=== PATIENT | male | born 1990 | race Caucasian/White ===

== ENCOUNTER 2019-12-04 14:07 | Emergency (ER) | payer SELFPAY ==
[~2019-12-04] VITALS: Ht 175 cm; Wt 57.0 kg
[~2019-12-04 14:07] MED LIST: NAPR-243 PO; NAPR550T PO; SULF1TAB38 PO
[2019-12-04] MEDS ORDERED: NS IV 1000 ML 1,000 ML IV SCH (14:20)
[2019-12-04] MEDS ORDERED: ACETAMINOPHEN 500 MG TAB (TYLENOL) PO STA (14:20)
--- NOTE | 2019-12-04 14:20 | ED Cough/URI ---
General Chief Complaint: Cough/Cold/Flu Symptoms Stated Complaint: ABD PAIN;NAUSEA History of Present Illness Date Seen by Provider: Dec 04, 2019 Time Seen by Provider: 14:17 Initial Comments 29-year-old male presents with generalized body aches, cough, fever, abdominal discomfort, nausea, sore throat. He reports the symptoms started this morning. He reports that he feels hot all over age just miserable. He denies any vomiting diarrhea shortness of breath or other systemic complaints. Allergies and Home Medications Allergies Uncoded Allergies: BUG SPRAY (Allergy, 09/19/11) Home Medications Benzonatate 100 Mg Capsule, 100 MG PO Q8H PRN for CONGESTION Prescribed by: VA KILPATRICK on 12/04/19 1509 Ondansetron 4 Mg Tab.rapdis, 4 MG PO Q6H PRN for NAUSEA/VOMITING Prescribed by: VA KILPATRICK on 12/04/19 1509 Patient Home Medication List Home Medication List Reviewed: Yes Review of Systems Review of Systems Constitutional: chills, fever, malaise Respiratory: cough; No short of breath Cardiovascular: No chest pain Gastrointestinal: abdominal pain ("cramps" ); No constipation, No diarrhea; nausea; No vomiting Musculoskeletal: no symptoms reported Skin: no symptoms reported Psychiatric/Neurological: See HPI Past Itkicso-Sxbxmx-Pezyri Hx Past Med/Social Hx: Reviewed Nursing Past Med/Soc Hx Patient Social History Recent Foreign Travel: No Contact w/Someone Who Travel: No Physical Exam Vital Signs - First Documented 12/04/19 14:10 Temp 38.7 Pulse 91 Resp 18 B/P (MAP) 127/62 (83) Pulse Ox 100 Capillary Refill : Height: '" Weight: lbs. oz. 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, normal mood/affect, oriented x 3 Lymphatic: no adenopathy Progress/Results/Core Measures Suspected Sepsis SIRS Temperature: Pulse: Respiratory Rate: Laboratory Tests 12/04/19 14:26: White Blood Count 7.0 Blood Pressure / Mean: Laboratory Tests 12/04/19 14:26: Creatinine 0.85, Platelet Count 86L, Total Bilirubin 1.0 Results/Orders Lab Results Laboratory Tests Test 12/04/19 14:26 Range/Units White Blood Count 7.0 4.3-11.0 10^3/uL Red Blood Count 5.17 4.35-5.85 10^6/uL Hemoglobin 15.6 13.3-17.7 G/DL Hematocrit 46 40-54 % Mean Corpuscular Volume 89 80-99 FL Mean Corpuscular Hemoglobin 30 25-34 PG Mean Corpuscular Hemoglobin Concent 34 32-36 G/DL Red Cell Distribution Width 13.1 10.0-14.5 % Platelet Count 86 L 130-400 10^3/uL Mean Platelet Volume 13.1 H 7.4-10.4 FL Sodium Level 141 135-145 MMOL/L Potassium Level 4.1 3.6-5.0 MMOL/L Chloride Level 105 98-107 MMOL/L Carbon Dioxide Level 26 21-32 MMOL/L Anion Gap 10 5-14 MMOL/L Blood Urea Nitrogen 8 7-18 MG/DL Creatinine 0.85 0.60-1.30 MG/DL Estimat Glomerular Filtration Rate > 60 BUN/Creatinine Ratio 9 Glucose Level 102 70-105 MG/DL Calcium Level 9.7 8.5-10.1 MG/DL Corrected Calcium 8.5-10.1 MG/DL Total Bilirubin 1.0 0.1-1.0 MG/DL Aspartate Amino Transf (AST/SGOT) 22 5-34 U/L Alanine Aminotransferase (ALT/SGPT) 43 0-55 U/L Alkaline Phosphatase 69 40-136 U/L Total Protein 7.2 6.4-8.2 GM/DL Albumin 4.8 H 3.2-4.5 GM/DL Micro Results Microbiology 12/04/19 Influenza Types A,B Antigen (DREW) - Final, Complete My Orders Orders - VA KILPATRICK DO Cbc No Diff (12/04/19 14:20) Comprehensive Metabolic Panel (12/04/19 14:20) Ua Culture If Indicated (12/04/19 14:20) Influenza A And B Antigens (12/04/19 14:20) Ed Iv/Invasive Line Start (12/04/19 14:20) Ns Iv 1000 Ml (Sodium Chloride 0.9%) (12/04/19 14:20) Acetaminophen Tablet (Tylenol Tablet) (12/04/19 14:20) Ondansetron Injection (Zofran Injectio (12/04/19 14:30) Medications Given in ED Current Medications Medications Dose Ordered Sig/Aldo Route Start Time Stop Time Status Last Admin Dose Admin Ondansetron HCl 4 mg ONCE ONCE IVP 12/04/19 14:30 12/04/19 14:31 DC 12/04/19 14:34 4 MG Vital Signs/I&O 12/04/19 14:10 Temp 38.7 Pulse 91 Resp 18 B/P (MAP) 127/62 (83) Pulse Ox 100 Capillary Refill : Departure Impression Primary Impression: Influenza-like symptoms Disposition: HOME, SELF-CARE Condition: Stable Departure-Patient Inst. Referrals: NO,LOCAL PHYSICIAN (PCP/Family) Primary Care Physician Patient Instructions: Flu, Adult (DC), Cough, Runny Nose, and the Common Cold (DC) Add. Discharge Instructions: Emergency department focuses on treating and ruling out life-threatening di seases. Whenever possible, a diagnosis is given. However, most patients are given an impression based on their history, physical exam, and workup during your brief time in the ER. Information about probable diagnosis and other educational material has been provided. Please take the time to read and understand this information. It is very important that you follow up with a physician as discussed during the visit today. Failure to adhere to your follow-up instructions may lead to severe disability, injury, or so please make sure to keep your appointments or obtain one as requested. Please keep in mind the emergency department is not designed to your primary care or "family doctor" and nonurgent issues are best evaluated by an outpatient physician All discharge instructions reviewed with patient and/or family. Voiced understanding. Scripts Benzonatate (TESSALON PERLES) 100 Mg Capsule 100 MG PO Q8H PRN for CONGESTION, #14 CAP Prov: VA KILPATRICK DO 12/04/19 Ondansetron (Ondansetron Odt) 4 Mg Tab.rapdis 4 MG PO Q6H PRN for NAUSEA/VOMITING, #30 TAB Prov: VA KILPATRICK DO 12/04/19 Work/School Note: Work Release Form Date Seen in the Emergency Department: Dec 04, 2019 Return to Work: Dec 06, 2019 VA KILPATRICK DO Dec 04, 2019 14:20
[2019-12-04] MEDS ORDERED: ONDANSETRON 4 MG/2 ML (SDV) Z0FRAN IVP ONE (14:30)
[2019-12-04 14:37] LABS: HEMOGLOBIN 15.6 G/DL (13.3-17.7); MEAN PLATELET VOLUME 13.1 FL (7.4-10.4); RED CELL DISTRIBUTION WIDTH 13.1 % (10.0-14.5)
[2019-12-04 14:56] LABS: ALANINE AMINOTRANSFERASE 43 U/L (0-55); ALBUMIN 4.8 GM/DL (3.2-4.5); ALKALINE PHOSPHATASE 69 U/L (40-136); BUN/CREATININE RATIO 9; CALCIUM 9.7 MG/DL (8.5-10.1); CARBON DIOXIDE 26 MMOL/L (21-32); CHLORIDE 105 MMOL/L (98-107); CREATININE SERUM 0.85 MG/DL (0.60-1.30); GFR ESTIMATED > 60; GLUCOSE 102 MG/DL (70-105); POTASSIUM 4.1 MMOL/L (3.6-5.0); SODIUM 141 MMOL/L (135-145); TOTAL PROTEIN 7.2 GM/DL (6.4-8.2)
[2019-12-04] MEDS ORDERED: BENZ100C18 PO (15:09)
[2019-12-04] MEDS ORDERED: ONDA4TAB11 PO (15:09)
[2019-12-04 15:30] VITALS: BP 127/62
== END 2019-12-04 15:30 | disposition home or self-care (01) ==
LOC: EDUNIT# 14:07 → ER 14:08
DX: R09.89 Other specified symptoms and signs involving the circulatory and respiratory systems (principal)
CPT/HCPCS: 36415; 80053; 85027; 87804; 96374

== ENCOUNTER 2020-05-07 17:37 | Emergency (ER) | payer SELFPAY ==
[~2020-05-07] VITALS: Ht 69 cm; Wt 60.0 kg
[~2020-05-07 17:37] MED LIST changes: +BENZ100C18 PO; +ONDA4TAB11 PO
[2020-05-07] MEDS ORDERED: LACTATED RINGERS 1,000 ML IV ONE ×2 (18:11→19:59)
[2020-05-07] MEDS ORDERED: ONDANSETRON 4 MG/2 ML (SDV) Z0FRAN IVP ONE (18:15)
[2020-05-07 18:22] LABS: BASOPHILS # (AUTO) 0.1 10^3/uL (0.0-0.1); BASOPHILS % (AUTO) 1 % (0-10); EOSINOPHILS # (AUTO) 0.4 10^3/uL (0.0-0.3); EOSINOPHILS % (AUTO) 5 % (0-10); HEMATOCRIT 45 % (40-54); HEMOGLOBIN 15.8 G/DL (13.3-17.7); LYMPHOCYTES # (AUTO) 2.3 X 10^3 (1.0-4.0); LYMPHOCYTES % (AUTO) 26 % (12-44); MEAN CORPUSCULAR HEMOGLOBIN 31 PG (25-34); MEAN CORPUSCULAR HGB CONC 35 G/DL (32-36); MEAN CORPUSCULAR VOLUME 87 FL (80-99); MEAN PLATELET VOLUME 12.4 FL (7.4-10.4); MONOCYTES # (AUTO) 0.5 X 10^3 (0.0-1.0); MONOCYTES % (AUTO) 6 % (0-12); NEUTROPHILS # (AUTO) 5.6 X 10^3 (1.8-7.8); NEUTROPHILS % (AUTO) 63 % (42-75); PLATELET COUNT 189 10^3/uL (130-400); RED CELL DISTRIBUTION WIDTH 12.5 % (10.0-14.5); WHITE BLOOD COUNT 8.9 10^3/uL (4.3-11.0)
--- NOTE | 2020-05-07 18:25 | ED GI ---
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 A CO-WORKER WAS "SICK" BUT DOES NOT KNOW SYMPTOMS AND HAS BEEN BACK TO WORK/RECOVERED PCP: NONE Allergies and Home Medications Allergies Uncoded Allergies: BUG SPRAY (Allergy, 09/19/11) Home Medications Benzonatate 100 Mg Capsule, 100 MG PO Q8H PRN for CONGESTION Prescribed by: VA KILPATRICK on 12/04/19 1509 Hyoscyamine Sulfate 0.125 Mg Tab.subl, 0.25 MG SL Q4H Prescribed by: ESTHER WALTERS on 05/07/202004 Ondansetron 4 Mg Tab.rapdis, 4 MG PO Q6H PRN for NAUSEA/VOMITING Prescribed by: VA KILPATRICK on 12/04/19 1509 Ondansetron 4 Mg Tab.rapdis, 4 MG PO Q4H Prescribed by: ESTHER WALTERS on 05/07/202004 Patient Home Medication List Home Medication List Reviewed: Yes Review of Systems Review of Systems Constitutional: see HPI; No chills, No diaphoresis, No dizziness, No fever; malaise, weakness EENTM: No Symptoms Reported Respiratory: No Symptoms Reported; Denies Cough, Denies Shortness of Air Cardiovascular: No Symptoms Reported Gastrointestinal: See HPI, Abdominal Pain; Denies Constipated, Denies Diarrhea; Nausea; Denies Vomiting Genitourinary: No Symptoms Reported Musculoskeletal: no symptoms reported Skin: no symptoms reported Psychiatric/Neurological: See HPI, Headache Endocrine: No Symptoms Reported Hematologic/Lymphatic: No Symptoms Reported Past Mrtsufa-Dtpfmy-Efiexl Hx Patient Social History Alcohol Use: Past History (HISTORY OF HEAVY USE, CLAIMS NONE FOR 1 1/2 YEARS, PER PT 05/07/20) Recreational Drug Use: Yes (THC) Drug of Choice: THC Smoking Status: Current Everyday Smoker (1 PPD) Type Used: Cigarettes Recent Foreign Travel: No Contact w/Someone Who Travel: No Recent Hopitalizations: No Seasonal Allergies Seasonal Allergies: No Past Medical History Surgeries: No Respiratory: No Cardiac: No Neurological: No Genitourinary: No Gastrointestinal: No Musculoskeletal: No Endocrine: No HEENT: No Cancer: No Psychosocial: No Integumentary: Yes (STAPH INFECTION AGE 7, REQUIRED HOSPITALIZATION) Blood Disorders: No Physical Exam Vital Signs Vital Signs - First Documented 05/07/20 17:40 Temp 36.8 Pulse 73 Resp 16 Pulse Ox 99 O2 Delivery Room Air Capillary Refill : Height/Weight/BMI Height: '" Weight: lbs. oz. 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, no motor/sensory deficits, alert, normal mood/affect, oriented x 3 Skin: normal color, warm/dry; No rash Progress/Results/Core Measures Results/Orders Lab Results Laboratory Tests Test 05/07/20 18:16 05/07/20 20:00 Range/Units White Blood Count 8.9 4.3-11.0 10^3/uL Red Blood Count 5.17 4.35-5.85 10^6/uL Hemoglobin 15.8 13.3-17.7 G/DL Hematocrit 45 40-54 % Mean Corpuscular Volume 87 80-99 FL Mean Corpuscular Hemoglobin 31 25-34 PG Mean Corpuscular Hemoglobin Concent 35 32-36 G/DL Red Cell Distribution Width 12.5 10.0-14.5 % Platelet Count 189 130-400 10^3/uL Mean Platelet Volume 12.4 H 7.4-10.4 FL Neutrophils (%) (Auto) 63 42-75 % Lymphocytes (%) (Auto) 26 12-44 % Monocytes (%) (Auto) 6 0-12 % Eosinophils (%) (Auto) 5 0-10 % Basophils (%) (Auto) 1 0-10 % Neutrophils # (Auto) 5.6 1.8-7.8 X 10^3 Lymphocytes # (Auto) 2.3 1.0-4.0 X 10^3 Monocytes # (Auto) 0.5 0.0-1.0 X 10^3 Eosinophils # (Auto) 0.4 H 0.0-0.3 10^3/uL Basophils # (Auto) 0.1 0.0-0.1 10^3/uL Sodium Level 140 135-145 MMOL/L Potassium Level 4.0 3.6-5.0 MMOL/L Chloride Level 106 98-107 MMOL/L Carbon Dioxide Level 24 21-32 MMOL/L Anion Gap 10 5-14 MMOL/L Blood Urea Nitrogen 7 7-18 MG/DL Creatinine 0.99 0.60-1.30 MG/DL Estimat Glomerular Filtration Rate > 60 BUN/Creatinine Ratio 7 Glucose Level 89 70-105 MG/DL Calcium Level 9.3 8.5-10.1 MG/DL Corrected Calcium 8.9 8.5-10.1 MG/DL Magnesium Level 2.2 1.6-2.4 MG/DL Total Bilirubin 0.4 0.1-1.0 MG/DL Aspartate Amino Transf (AST/SGOT) 27 5-34 U/L Alanine Aminotransferase (ALT/SGPT) 22 0-55 U/L Alkaline Phosphatase 99 40-136 U/L Total Protein 7.3 6.4-8.2 GM/DL Albumin 4.5 3.2-4.5 GM/DL Amylase Level 39 25-125 U/L Lipase 14 8-78 U/L Serum Alcohol < 10 <10 MG/DL Urine Color YELLOW Urine Clarity CLEAR Urine pH 6.5 5-9 Urine Specific [place] 1.010 L 1.016-1.022 Urine Protein NEGATIVE NEGATIVE Urine Glucose (UA) NEGATIVE NEGATIVE Urine Ketones NEGATIVE NEGATIVE Urine Nitrite NEGATIVE NEGATIVE Urine Bilirubin NEGATIVE NEGATIVE Urine Urobilinogen 2.0 < = 1.0 MG/DL Urine Leukocyte Esterase NEGATIVE NEGATIVE Urine RBC (Auto) NEGATIVE NEGATIVE Urine RBC NONE /HPF Urine WBC NONE /HPF Urine Squamous Epithelial Cells RARE /HPF Urine Crystals NONE /LPF Urine Bacteria NEGATIVE /HPF Urine Casts NONE /LPF Urine Mucus NEGATIVE /LPF Urine Culture Indicated NO Urine Opiates Screen NEGATIVE NEGATIVE Urine Oxycodone Screen NEGATIVE NEGATIVE Urine Methadone Screen NEGATIVE NEGATIVE Urine Propoxyphene Screen NEGATIVE NEGATIVE Urine Barbiturates Screen NEGATIVE NEGATIVE Ur Tricyclic Antidepressants Screen NEGATIVE NEGATIVE Urine Phencyclidine Screen NEGATIVE NEGATIVE Urine Amphetamines Screen NEGATIVE NEGATIVE Urine Methamphetamines Screen NEGATIVE NEGATIVE Urine Benzodiazepines Screen NEGATIVE NEGATIVE Urine Cocaine Screen NEGATIVE NEGATIVE Urine Cannabinoids Screen POSITIVE H NEGATIVE My Orders Orders - ESTHER WALTERS DO Ed Iv/Invasive Line Start (05/07/20 18:11) Alcohol (05/07/20 18:11) Amylase (05/07/20 18:11) Cbc With Automated Diff (05/07/20 18:11) Comprehensive Metabolic Panel (05/07/20 18:11) Drug Screen Stat (Urine) (05/07/20 18:11) Lipase (05/07/20 18:11) Magnesium (05/07/20 18:11) Ua Culture If Indicated (05/07/20 18:11) Ed Iv/Invasive Line Start (05/07/20 18:11) Lactated Ringers (Lr 1000 Ml Iv Solution (05/07/20 18:11) Ondansetron Injection (Zofran Injectio (05/07/20 18:15) Acute Abd Series (05/07/20 18:46) Ct Abd/Pelv W (Appendicitis) (05/07/20 18:46) Iohexol Injection (Omnipaque 350 Mg/Ml 1 (05/07/20 19:45) Received Contrast (Hold Metformin- Contr (05/07/20 19:45) Sodium Chloride Flush (Catheter Flush Sy (05/07/20 19:45) Ns (Ivpb) (Sodium Chloride 0.9% Ivpb Bag (05/07/20 19:45) Ed Iv/Invasive Line Start (05/07/20 19:59) Lactated Ringers (Lr 1000 Ml Iv Solution (05/07/20 19:59) Rx-Hyoscyamine Tab (Rx-Levsin Sl) (05/07/20 20:05) Rx-Ondansetron Po (Rx-Zofran Po) (05/07/20 20:05) Medications Given in ED Current Medications Medications Dose Ordered Sig/Aldo Route Start Time Stop Time Status Last Admin Dose Admin Iohexol 100 ml ONCE ONCE IV 05/07/20 19:45 05/07/20 19:46 DC 05/07/20 19:40 72 ML Lactated Ringer's 1,000 ml @ 0 mls/hr Q0M ONCE IV 05/07/20 18:11 05/07/20 18:13 DC 05/07/20 18:27 1,000 MLS/HR Lactated Ringer's 1,000 ml @ 0 mls/hr Q0M ONCE IV 05/07/20 19:59 05/07/20 20:00 DC 05/07/20 20:08 1,000 MLS/HR Ondansetron HCl 4 mg ONCE ONCE IVP 05/07/20 18:15 05/07/20 18:16 DC 05/07/20 18:26 4 MG Sodium Chloride 10 ml NEEDED PRN IV 05/07/20 19:45 05/07/20 19:40 10 ML Sodium Chloride 100 ml ONCE ONCE IV 05/07/20 19:45 05/07/20 19:46 DC 05/07/20 19:40 80 ML Vital Signs/I&O 05/07/20 17:40 Temp 36.8 Pulse 73 Resp 16 B/P (MAP) Pulse Ox 99 O2 Delivery Room Air Progress Progress Note : Progress Note SYMPTOMS IMPROVED AT DISMISSAL Diagnostic Imaging Comments ABDOMEN XRAYS--PER RADIOLOGIST REPORT AT 1957 IMPRESSION: 1. The bowel gas pattern is nonspecific. There is no acute abnormality identified. 2. Reportedly, CT of the abdomen and pelvis is pending for further study. CT ABDOMEN/PELVIS--PER RADIOLOGIST REPORT AT 2001 IMPRESSION: 1. Appendix not seen but no focal inflammatory change seen in the right lower quadrant. 2. Findings of constipation with some mild fecalization of the right lower quadrant small bowel loops, as noted above. Correlate with possible recent enteritis or ileus. Reviewed: Reviewed by Me Departure Impression Primary Impression: Abdominal pain Additional Impression: Constipation Disposition: 01 HOME, SELF-CARE Condition: Improved Departure-Patient Inst. Referrals: NO,LOCAL PHYSICIAN (PCP/Family) Primary Care Physician Patient Instructions: Acute Abdomen (Belly Pain), Adult (DC), Constipation, Adult (DC), [id number] Add. Discharge Instructions: CLEAR LIQUIDS--WATER, BROTH, JELLO, GATORADE TOMORROW IF YOU ARE BETTER, ADD BRATS DIET TO CLEAR LIQUIDS MIRALAX EVERY 2-3 HOURS UNTIL STOOLS ARE CLEAR, THEN USE ONCE A DAY FOLLOW UP WITH OF MARAL IN 2-3 DAYS IF NO BETTER, RETURN TO ER IF WORSE All discharge instructions reviewed with patient and/or family. Voiced understanding. Scripts Hyoscyamine Sulfate (Levsin-Sl) 0.125 Mg Tab.subl 0.25 MG SL Q4H, #10 TAB Prov: ESTHER WALTERS DO 05/07/20 Ondansetron (Ondansetron Odt) 4 Mg Tab.rapdis 4 MG PO Q4H for Nausea/Vomiting, #10 TAB Prov: ESTHER WALTERS DO 05/07/20 ESTHER WALTERS DO May 07, 2020 18:25
[2020-05-07 18:37] LABS: ALBUMIN 4.5 GM/DL (3.2-4.5)
[2020-05-07 18:38] LABS: CHLORIDE 106 MMOL/L (98-107); SODIUM 140 MMOL/L (135-145)
[2020-05-07 18:39] LABS: AMYLASE 39 U/L (25-125); CALCIUM 9.3 MG/DL (8.5-10.1)
[2020-05-07 18:40] LABS: GLUCOSE 89 MG/DL (70-105); TOTAL PROTEIN 7.3 GM/DL (6.4-8.2)
[2020-05-07 18:41] LABS: CARBON DIOXIDE 24 MMOL/L (21-32)
[2020-05-07 18:42] LABS: BILIRUBIN,TOTAL 0.4 MG/DL (0.1-1.0)
[2020-05-07 18:43] LABS: ALKALINE PHOSPHATASE 99 U/L (40-136)
[2020-05-07 18:44] LABS: CREATININE SERUM 0.99 MG/DL (0.60-1.30); GFR ESTIMATED > 60
[2020-05-07 18:45] LABS: BUN/CREATININE RATIO 7
[2020-05-07 18:46] LABS: ALANINE AMINOTRANSFERASE 22 U/L (0-55)
[2020-05-07 18:47] LABS: MAGNESIUM 2.2 MG/DL (1.6-2.4)
[2020-05-07 18:48] LABS: LIPASE 14 U/L (8-78)
--- OUTSIDE RECORDS SUMMARY | 2020-05-07 19:26 | XMS REPORT ---
Author Author Marco Chen Doctor Organization [facility] Address Unknown Phone Unavailable Care Team Providers Care Provider Scribe Name Role Phone Migration, Doctor Unavailable Unavailable PROBLEMS Type Condition ICD9-CM Code SUE54-AZ Code Onset Dates Condition S tatus SNOMED Code Problem Acute upper respiratory infections of unspecified site 465.9 Active 73421769 Problem Dermatophytosis of foot 110.4 Active 9713159 Problem Nausea alone 787.02 Active 3920857 07 Problem Unspecified myalgia and myositis 729.1 Active [id number] ALLERGIES No Information ENCOUNTERS Encounter Location Date Diagnosis [facility] [address] [facility] [id number] [address] [place] [phone] Feb, [facility] [address] [facility] [id number] [address] [place] [phone] Feb, [facility] [address] [facility] [id number] [address] [place] [phone] Jun, [facility] [address] [facility] [id number] [address] [place] [phone] Jun, [facility] [address] [facility] [id number] [address] [place] [phone] May, [facility] [address] [facility] [id number] [address] [place] [phone] Apr, IMMUNIZATIONS No Known Immunizations SOCIAL HISTORY Never Assessed REASON FOR VISIT PLAN OF CARE VITAL SIGNS Height 69 in 2012-04-30 Weight 130.8 lbs 2012-04-30 Temperature 97.1 degrees Fahrenheit 2012-04-30 Heart Rate 78 bpm 2012-04-30 Respiratory Rate 18 2012-04-30 Blood pressure systolic 130 mmHg 2012-04-30 Blood pressure diastolic 86 mmHg 2012-04-30 MEDICATIONS Unknown Medications RESULTS No Results PROCEDURES No Known procedures INSTRUCTIONS MEDICATIONS ADMINISTERED No Known Medications
--- OUTSIDE RECORDS SUMMARY | 2020-05-07 19:26 | XMS REPORT | Continuity of Care Document ---
Author Organization Unknown Address Unknown Phone Unavailable Allergies Active Description Code Type Severity Reaction Onset Reported/Identified Relationship to Patient Clinical Status Yes BUG SPRAY BUG SPRAY Unknown N/A 09/19/2011 Medications There is no data. Problems Date Dx Coded Attending Type Code Diagnosis Diagnosed By 12/08/2019 VA KILPATRICK DO Ot R09.8 9 OTH SYMPTOMS AND SIGNS INVOLVING THE CIR 12/08/2019 VA KILPATRICK DO Ot R11.0 NAUSEA Procedures There is no data. Results Test Result Range Automated blood complete blood count (he mogram) panel - 12/04/19 14:26 Blood leukocytes automated count (number/volume) 7.0 10*3/uL 4.3-11.0 Blood erythrocytes automated count (number/volume) 5.17 10*6/uL 4.35-5.85 Venous blood hemoglobin measurement (mass/volume) 15.6 g/dL 13.3-17.7 Blood hematocrit (volume fraction) 46 % 40-54 Automated erythrocyte mean corpuscular volume 89 [ foz_us] 80-99 Automated erythrocyte mean corpuscular h emoglobin (mass per erythrocyte) 30 pg 25-34 Automated erythrocyte mean corpuscular h emoglobin concentration measurement (mass/volume) 34 g/dL 32-36 Automated erythrocyte distribution width ratio 13. 1 % 10.0- 14.5 Automated blood platelet count (count/volume) 86 1 0*3/uL 130-400 Automated blood platelet mean volume measurement 13.1 [foz_us] 7.4-10.4 Influenza virus A and B antigen detectio n - 12/04/19 14:26 FLU RESULT NEGATIVE FOR INFLUENZA A AND B ANTIGENS BY [facility] Comprehensive metabolic panel - 12/04/19 14:26 Serum or plasma sodium measurement (moles/volume) 141 mmol/L 135-145 Serum or plasma potassium measurement (moles/volume) 4.1 mmol/L 3.6-5.0 Serum or plasma chloride measurement (moles/volume) 105 mmol/L 98-107 Carbon dioxide 26 mmol/L 21-32 Serum or plasma anion gap determination (moles/volume) 10 mmol/L 5-14 Serum or plasma urea nitrogen measurement (mass/volume ) 8 mg/dL 7-18 Serum or plasma creatinine measurement (mass/volume) 0.85 mg/dL 0.60-1.30 Serum or plasma urea nitrogen/creatinine mass ratio 9 NRG Serum or plasma creatinine measurement w ith calculation of estimated glomerular filtration rate > NRG Serum or plasma glucose measurement (mass/volume) 102 mg/dL 70-105 Serum or plasma calcium measurement (mass/volume) 9.7 mg/dL 8.5-10.1 Serum or plasma total bilirubin measurement (mass/volu me) 1.0 mg/dL 0.1-1.0 Serum or plasma alkaline phosphatase kwasi surement (enzymatic activity/volume) 69 U/L 40-136 Serum or plasma aspartate aminotransfera se measurement (enzymatic activity/volume) 22 U/L 5-34 Serum or plasma alanine aminotransferase measurement (enzymatic activity/volume) 43 U/L 0-55 Serum or plasma protein measurement (mass/volume) 7.2 g/dL 6.4-8.2 Serum or plasma albumin measurement (mass/volume) 4.8 g/dL 3.2-4.5 Complete blood count (CBC) with automate d white blood cell (WBC) differential - 05/07/20 18:16 Blood leukocytes automated count (number/volume) 8.9 10*3/uL 4.3-11.0 Blood erythrocytes automated count (number/volume) 5.17 10*6/uL 4.35-5.85 Venous blood hemoglobin measurement (mass/volume) 15.8 g/dL 13.3-17.7 Blood hematocrit (volume fraction) 45 % 40-54 Automated erythrocyte mean corpuscular volume 87 [ foz_us] 80-99 Automated erythrocyte mean corpuscular h emoglobin (mass per erythrocyte) 31 pg 25-34 Automated erythrocyte mean corpuscular h emoglobin concentration measurement (mass/volume) 35 g/dL 32-36 Automated erythrocyte distribution width ratio 12. 5 % 10.0- 14.5 Automated blood platelet count (count/volume) 189 10*3/uL 130-400 Automated blood platelet mean volume measurement 12.4 [foz_us] 7.4-10.4 Automated blood neutrophils/100 leukocytes 63 % 42-75 Automated blood lymphocytes/100 leukocytes 26 % 12-44 Blood monocytes/100 leukocytes 6 % 0-12 Automated blood eosinophils/100 leukocytes 5 % 0-10 Automated blood basophils/100 leukocytes 1 % 0-10 Blood neutrophils automated count (number/volume) 5.6 10*3 1.8-7.8 Blood lymphocytes automated count (number/volume) 2.3 10*3 1.0-4.0 Blood monocytes automated count (number/volume) 0. 5 10*3 0.0-1.0 Automated eosinophil count 0.4 10*3/uL 0 .0-0.3 Automated blood basophil count (count/volume) 0.1 10*3/uL 0.0-0.1 Comprehensive metabolic panel - 05/07/20 18:16 Serum or plasma sodium measurement (moles/volume) 140 mmol/L 135-145 Serum or plasma potassium measurement (moles/volume) 4.0 mmol/L 3.6-5.0 Serum or plasma chloride measurement (moles/volume) 106 mmol/L 98-107 Carbon dioxide 24 mmol/L 21-32 Serum or plasma anion gap determination (moles/volume) 10 mmol/L 5-14 Serum or plasma urea nitrogen measurement (mass/volume ) 7 mg/dL 7-18 Serum or plasma creatinine measurement (mass/volume) 0.99 mg/dL 0.60-1.30 Serum or plasma urea nitrogen/creatinine mass ratio 7 NRG Serum or plasma creatinine measurement w ith calculation of estimated glomerular filtration rate > NRG Serum or plasma glucose measurement (mass/volume) 89 mg/dL 70-105 Serum or plasma calcium measurement (mass/volume) 9.3 mg/dL 8.5-10.1 Serum or plasma total bilirubin measurement (mass/volu me) 0.4 mg/dL 0.1-1.0 Serum or plasma alkaline phosphatase kwasi surement (enzymatic activity/volume) 99 U/L 40-136 Serum or plasma aspartate aminotransfera se measurement (enzymatic activity/volume) 27 U/L 5-34 Serum or plasma alanine aminotransferase measurement (enzymatic activity/volume) 22 U/L 0-55 Serum or plasma protein measurement (mass/volume) 7.3 g/dL 6.4-8.2 Serum or plasma albumin measurement (mass/volume) 4.5 g/dL 3.2-4.5 CALCIUM CORRECTED 8.9 mg/dL 8.5-10.1 Magnesium - 05/07/20 18:16 Magnesium 2.2 mg/dL 1.6-2.4 Serum or plasma amylase measurement (enz ymatic activity/volume) - 05/07/20 18:16 Serum or plasma amylase measurement (enzymatic activit y/volume) 39 U/L 25-125 Lipase - 05/07/20 18:16 Lipase 14 U/L 8-78 Serum or plasma ethanol measurement (mas s/volume) - 05/07/20 18:16 Serum or plasma ethanol measurement (mass/volume) < mg/dL <10 Encounters ACCT No. Visit Date/Time Discharge Status Pt. Type Provider Facility Loc./Unit Complaint [id number] 12/04/2019 14:08:00 020 15:30:00 DIS Outpatient VA KILPATRICK DO Via [facility] ER ABD PAIN;NAUSEA [id number] 05/07/2020 17:38:[address] Emergency ESTHER WALTERS DO [facility] ER HEADACHE,ABD PAIN, N/V
--- NOTE | 2020-05-07 19:39 | NUR ---
Report given to Júnior LEWIS
[2020-05-07] MEDS ORDERED: IOHEXOL 350 MG/ML 100 ML (OMNIPAQUE 350) VIAL IV ONE (19:45)
[2020-05-07] MEDS ORDERED: CATHETER FLUSH 10 ML SYR IV PRN (19:45)
[2020-05-07] MEDS ORDERED: HOLD METFORMIN - RECEIVED CONTRAST 20 ML VIAL IV SCH (19:45)
[2020-05-07] MEDS ORDERED: NS 100 ML (IVPB) BAG IV ONE (19:45)
--- NOTE | 2020-05-07 19:55 | Diagnostic Imaging Report ---
EXAMINATION: Acute abdomen INDICATION: Abdominal pain The accompanying erect PA chest shows the heart size to be within normal limits and stable when compared to 09/13/2010. The lungs are clear. There is no sign of a pneumoperitoneum. The mediastinum is not widened. Supine and erect views of the abdomen were obtained. There is some gas in both the large and small bowel in a nonspecific fashion. There is no evidence for bowel obstruction. There is no mass, organomegaly, or pathological calcifications evident. The osseous structures are intact. IMPRESSION: 1. The bowel gas pattern is nonspecific. There is no acute abnormality identified. 2. Reportedly, CT of the abdomen and pelvis is pending for further study. Dictated by: Dictated on workstation # [id number]
--- NOTE | 2020-05-07 20:01 | Diagnostic Imaging Report ---
INDICATION: Nausea since 12:00 a.m. Question of appendicitis. EXAMINATION: CT abdomen and pelvis with contrast, 05/07/2020. All CT scans use one or more of the following dose optimizing techniques: automated exposure control, MA and/or KvP adjustment based on patient size and exam type or iterative reconstruction. COMPARISON: None. FINDINGS: The lung bases are clear. Liver and spleen are unremarkable. Pancreas unremarkable. Gallbladder is contracted. Adrenal glands are within normal limits. Kidneys appear unremarkable. The appendix is not well seen. No inflammatory change is appreciated within the right lower quadrant. There is no free fluid. No abscess or free air. Findings of constipation noted throughout the colon. There is also fecalization noted within several small bowel loops which suggests chronic stasis. Perhaps there is history of recent enteritis, correlate clinically. There is no acute osseous abnormality. IMPRESSION: 1. Appendix not seen but no focal inflammatory change seen in the right lower quadrant. 2. Findings of constipation with some mild fecalization of the right lower quadrant small bowel loops, as noted above. Correlate with possible recent enteritis or ileus. Dictated by: Dictated on workstation # [id number]
[2020-05-07] MEDS ORDERED: ONDA4TAB11 PO (20:05)
[2020-05-07] MEDS ORDERED: RX-HYOSCYAMINE 0.125 MG SL (LEVSIN) PPK#6 SL STA (20:05)
[2020-05-07] MEDS ORDERED: HYOS0.1283 SL (20:05)
[2020-05-07] MEDS ORDERED: RX-ONDANSETRON 4 MG ODT (ZOFRAN) PPK #4 PO STA (20:05)
[2020-05-07 20:08] LABS: BILIRUBIN,URINE NEGATIVE (NEGATIVE); CLARITY,URINE CLEAR; COLOR,URINE YELLOW; GLUCOSE, URINE (UA) NEGATIVE (NEGATIVE); KETONES,URINE NEGATIVE (NEGATIVE); LEUKOCYTE ESTERASE ,URINE NEGATIVE (NEGATIVE); NITRITE,URINE NEGATIVE (NEGATIVE); PH,URINE 6.5 (5-9); PROTEIN,URINE NEGATIVE (NEGATIVE)
[2020-05-07 20:17] LABS: AMPHETAMINE SCREEN, URINE NEGATIVE (NEGATIVE); BENZODIAZEPINES SCREEN URINE NEGATIVE (NEGATIVE); COCAINE SCREEN URINE NEGATIVE (NEGATIVE)
[2020-05-07 20:18] LABS: BARBITURATE SCREEN URINE NEGATIVE (NEGATIVE); CANNABINOID SCREEN, URINE POSITIVE (NEGATIVE); METHADONE STAT NEGATIVE (NEGATIVE); METHAMPHETAMINE SCREEN URINE S NEGATIVE (NEGATIVE); OPIATE SCREEN URINE NEGATIVE (NEGATIVE); OXYCODONE STAT NEGATIVE (NEGATIVE); PROPOXYPHENE STAT NEGATIVE (NEGATIVE); TRICYCLIC ANTIDEPRESSANTS SCRE NEGATIVE (NEGATIVE)
[2020-05-07 20:19] LABS: BACTERIA,URINE NEGATIVE /HPF; SQUAMOUS EPITHELIAL CELL,UR RARE /HPF
[2020-05-07 20:26] VITALS: BP 105/65
== END 2020-05-07 20:40 | disposition home or self-care (01) ==
LOC: EDUNIT# 17:37 → ER 17:38
DX: K59.00 Constipation, unspecified (principal); F17.210 Nicotine dependence, cigarettes, uncomplicated
CPT/HCPCS: 74022; 74177; 80053; 80306; 81000; 82150; 83690; 83735; 85025; 99284; G0480; 36415; 80320

== ENCOUNTER 2022-10-26 09:58 | Emergency (ER) | payer SELFPAY ==
[~2022-10-26] VITALS: Ht 175 cm; Wt 59.8 kg
[~2022-10-26 09:58] MED LIST changes: +HYOS0.1283 SL
--- NOTE | 2022-10-26 10:33 | ED General ---
General Chief Complaint: Respiratory Problems Stated Complaint: CHEST PAINS Nursing Triage Note: PT PRESENTS TO ED WITH COMPLAINTS OF SOA, COUGH, FEVER, BACK PAIN, CP STARTING THIS AM WHILE AT WORK. (PAIGE WATKINS) Source of Information: Patient Exam Limitations: No Limitations (CHAYO HAY MD) History of Present Illness Date Seen by Provider: Oct 26, 2022 Time Seen by Provider: 10:16 Initial Comments 32 yo male here for diffuse joint pain. Pt reports pain all throughout spine, chest pain, and R knee pain. 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 Denies any muscular pain, SOB. (PAIGE WATKINS) Allergies and Home Medications Allergies Coded Allergies: bee venom protein (honey bee) (Verified Allergy, Unknown, 10/26/22) chocolate flavor (Verified Allergy, Unknown, 10/26/22) milk (Verified Allergy, Unknown, 10/26/22) Uncoded Allergies: BUG SPRAY (Allergy, Unknown, 10/26/22) Patient Home Medication List Home Medication List Reviewed: Yes (PAIGE WATKINS) Benzonatate (Tessalon Perles) 100 Mg Capsule, 100 MG PO Q8H PRN for CONGESTION Prescribed by: VA KILPATRICK on 12/04/19 1509 Hyoscyamine Sulfate (Levsin-Sl) 0.125 Mg Tab.subl, 0.25 MG SL Q4H Prescribed by: ESTHER WALTERS on 05/07/202004 Ondansetron (Ondansetron Odt) 4 Mg Tab.rapdis, 4 MG PO Q6H PRN for NAUSEA/VOMITING Prescribed by: VA KILPATRICK on 12/04/19 1509 Ondansetron (Ondansetron Odt) 4 Mg Tab.rapdis, 4 MG PO Q4H Prescribed by: ESTHER WALTERS on 05/07/202004 Oseltamivir Phosphate (Tamiflu) 75 Mg Cap, 75 MG PO BID Prescribed by: CHAYO WILLAMS on 10/26/22 1115 Review of Systems Review of Systems Constitutional: No chills, No diaphoresis, No dizziness, No fever EENTM: no symptoms reported Respiratory: No cough, No short of breath Cardiovascular: No chest pain Gastrointestinal: no symptoms reported Genitourinary: no symptoms reported Musculoskeletal: back pain, joint pain; No joint swelling, No muscle pain, No muscle stiffness, No muscle cramps, No muscle twitching, No muscle weakness Skin: No change in color, No change in hair/nails Psychiatric/Neurological: No Symptoms Reported Hematologic/Lymphatic: No Symptoms Reported Immunological/Allergic: no symptoms reported (PAIGE WATKINS) Past Xokyqew-Owdhfv-Xxflax Hx Patient Social History Tobacco Use?: Yes Tobacco type used: Cigarettes Smoking Status: Current Everyday Smoker Substance use?: No Alcohol Use?: No Pt feels they are or have been: No (PAIGE WATKINS) Seasonal Allergies Seasonal Allergies: No (PAIGE WATKINS) Past Medical History Surgeries: No Respiratory: No Cardiac: No Neurological: No Genitourinary: No Gastrointestinal: No Musculoskeletal: No Endocrine: No HEENT: No Cancer: No Psychosocial: No Integumentary: Yes (STAPH INFECTION AGE 7, REQUIRED HOSPITALIZATION) Blood Disorders: No (PAIGE WATKINS) Physical Exam Vital Signs Vital Signs - First Documented 10/26/22 10/26/22 10:01 11:23 Temp 38.5 Pulse 86 Resp 18 B/P (MAP) 113/74 (87) Pulse Ox 100 O2 Delivery Room Air (CHAYO HAY MD) Vital Signs Capillary Refill : Less Than 3 Seconds (PAIGE WATKINS) Height, Weight, BMI Height: '" Weight: lbs. oz. kg; 19.00 BMI Method:Stated General Appearance: No Apparent Distress, WD/WN HEENT: PERRL/EOMI, TMs Normal, Normal ENT Inspection, Pharynx Normal Neck: Full Range of Motion, Normal Inspection, Non Tender, Supple Respiratory: No Chest Non Tender; Lungs Clear, Normal Breath Sounds, No Accessory Muscle Use, No Respiratory Distress, Other (Chest tenderness upon palpation ) Cardiovascular: Regular Rate, Rhythm, No Edema, No Gallop, No JVD, No Murmur, Normal Peripheral Pulses Gastrointestinal: Normal Bowel Sounds, No Organomegaly, No Pulsatile Mass, Non Tender, Soft Back: Normal Inspection, No CVA Tenderness, No Vertebral Tenderness Extremity: Normal Capillary Refill, Normal Inspection, Normal Range of Motion, No Pedal Edema Neurologic/Psychiatric: Alert, Oriented x3, No Motor/Sensory Deficits, Normal Mood/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 No erythema, swelling, abrasions, or bruising upon inspection. (PAIGE WATKINS) Progress/Results/Core Measures Suspected Sepsis SIRS Temperature: Pulse: 86 Respiratory Rate: 18 Blood Pressure 113 /74 Mean: 87 (PAIGE WATKINS) Results/Orders Lab Results Laboratory Tests Test 10/26/22 10:10 Range/Units Influenza Type A (RT-PCR) Detected H Not Detecte Influenza Type B (RT-PCR) Not Detected Not Detecte SARS-CoV-2 RNA (RT-PCR) Not Detected Not Detecte (CHAYO HAY MD) My Orders Orders - CHAYO HAY MD Covid 19 Inhouse Test (10/26/22 10:05) Influenza A And B By Pcr (10/26/22 10:05) Ekg Tracing (10/26/22 10:14) O2 (10/26/22 10:14) Monitor-Rhythm Ecg Trace Only (10/26/22 10:14) Ibuprofen Tablet (Motrin Tablet) (10/26/22 11:00) (CHAYO HAY MD) Medications Given in ED (CHAYO HAY MD) Vital Signs/I&O 10/26/22 10/26/22 10:01 11:23 Temp 38.5 Pulse 86 79 Resp 18 16 B/P (MAP) 113/74 (87) 105/65 Pulse Ox 100 100 O2 Delivery Room Air (CHAYO HAY MD) Vital Signs/I&O Capillary Refill : Less Than 3 Seconds (PAIGE WATKINS) Blood Pressure Mean: 87 Progress Note : Progress Note Patient was febrile with symptoms as described above. He tested positive for influenza A. Ibuprofen was administered. Vital signs were stable. The symptom most troublesome to him was headache. Risks and benefits of Tamiflu were discussed. Patient requested Tamiflu prescription. (CHAYO HAY MD) ECG Initial ECG Impression Date: Oct 26, 2022 Initial ECG Impression Time: 10:08 Initial ECG Rate: 74 Initial ECG Rhythm: Normal Sinus Initial ECG Intervals: Normal Initial ECG Impression: Normal Comment Sinus rhythm with artifact and no ST elevation or depression. No abnormal intervals or axis deviation. (CHAYO HAY MD) Departure Impression Primary Impression: Influenza A Additional Impressions: Myalgia Headache Qualified Codes: R51.9 - Headache, unspecified Disposition: 01 HOME, SELF-CARE Condition: Stable Departure-Patient Inst. Decision time for Depature: 11:13 (CHAOY HAY MD) Referrals: NO,LOCAL PHYSICIAN (PCP/Family) Primary Care Physician Patient Instructions: Flu Add. Discharge Instructions: Start Tamiflu promptly and complete the entire 10 doses even if you are feeling better before the doses are complete. For pain and fever you may take ibuprofen up to 600 mg every 6 hours as needed and/or Tylenol (acetaminophen) up to 1000 mg every 6 hours as needed. Drink plenty of clear liquids. Stay home from work until your fever has completely resolved for at least 24 hours without the use of fever reducing medications. Return to care if you have worsening symptoms despite following these instructions. All discharge instructions reviewed with patient and/or family. Voiced understanding. Scripts Oseltamivir Phosphate (Tamiflu) 75 Mg Cap 75 MG PO BID, #10 CAP Prov: CHAYO HAY MD 10/26/22 Work/School Note: Work Release Form Date Seen in the Emergency Department: Oct 26, 2022 Return to Work: Oct 29, 2022 Restrictions: Return-No Fever (24hrs), Return-No Vomiting(24hrs) Medical Student Attestation and Attending Note: I have personally interviewed and examined this patient along with Paige Watkins, MS 3. I have reviewed student documentation including history, physical, and assessments. I agree with the documentation except where otherwise noted. Exam: General: Alert, oriented, thin, acutely ill appearing HEENT: Normocephalic and atraumatic, poor dentition Heart: Regular rate and rhythm without murmur Lungs: Clear to auscultation bilaterally with normal effort Abdomen: Soft, nontender, nondistended, normal bowel sounds Neuropsych: Alert, oriented, no focal deficits Skin: Warm and dry without rashes (CHAYO HAY MD) PAIGE WATKINS Oct 26, 2022 10:33 CHAYO HAY MD Oct 26, 2022 11:16
[2022-10-26] MEDS ORDERED: IBUPROFEN TABLET 200 MG TAB PO ONE (11:00)
[2022-10-26] MEDS ORDERED: OSLT75C PO (11:15)
[2022-10-26 11:23] VITALS: BP 105/65
== END 2022-10-26 11:23 | disposition home or self-care (01) ==
LOC: EDUNIT# 09:58 → ER 10:01
DX: J10.1 Influenza due to other identified influenza virus with other respiratory manifestations (principal); R51.9 Headache, unspecified; M25.561 Pain in right knee; R07.9 Chest pain, unspecified; F17.210 Nicotine dependence, cigarettes, uncomplicated; Z20.822 Contact with and (suspected) exposure to COVID-19; Z28.310 Unvaccinated for COVID-19
CPT/HCPCS: 87636; 93005